=== PATIENT | male | born 1980 | race Asian ===

== ENCOUNTER 2019-07-23 10:08 | Emergency (ER) | payer MEDICAID ==
[~2019-07-23] VITALS: Ht 170.2 cm; Wt 70.3 kg
[2019-07-23 10:10] VITALS: BP_SYST 141
[2019-07-23] MEDS ORDERED: NACL 0.9% 1,000 ML IV ONE (10:31)
[2019-07-23] MEDS ORDERED: ASPIRIN 81 MG TAB.CHEW PO ONE (10:45)
[2019-07-23 10:55] LABS: BASOPHILS % (AUTO) 0.6 % (0.0-2.0); EOSINOPHILS % (AUTO) 0.1 % (0.0-4.0); HEMATOCRIT 44.6 % (36-54); LYMPHOCYTES # (AUTO) 0.9 K/uL (1.0-5.5); LYMPHOCYTES % (AUTO) 13.6 % (20.5-51.5); MEAN CORPUSCULAR HEMOGLOBIN 30 pg (27-31); MEAN CORPUSCULAR HGB CONC 34 % (32-36); MEAN CORPUSCULAR VOLUME 89 fL (79.0-98.0); MONOCYTES # (AUTO) 0.4 K/uL (0.0-1.0); MONOCYTES % (AUTO) 6.9 % (1.7-9.3); NEUTROPHILS # (AUTO) 4.9 K/uL (1.8-7.7); NEUTROPHILS % (AUTO) 78.8 % (40.0-70.0); PLATELET COUNT (AUTO) 223 K/uL (130-430); RED BLOOD CELL COUNT(AUTO) 4.99 MIL/uL (4.2-6.2); RED CELL DISTRIBUTION WIDTH 13.1 % (9.0-15.0); WHITE BLOOD COUNT (AUTO) 6.3 K/uL (4.8-10.8)
[2019-07-23 11:06] LABS: ANION GAP 8 (5-15); CALCIUM 8.5 mg/dL (8.4-11.0); CHLORIDE 102 mmol/L (98-107); CREATININE 0.91 mg/dL (0.55-1.30); GLUCOSE 134 mg/dL (70-99); POTASSIUM 3.7 mmol/L (3.5-5.1); SODIUM SERUM 138 mmol/L (136-145); UREA NITROGEN, BLOOD 9 mg/dL (8-21)
[2019-07-23 11:07] LABS: GFR AFRICAN AMERICAN 119 mL/min (>90)
[2019-07-23 11:14] LABS: ALANINE AMINOTRANSFERASE 33 U/L (12-78); ALBUMIN 3.7 g/dL (3.4-4.8); ASPARTATE AMINOTRANSFERASE 19 U/L (10-37); TOTAL BILIRUBIN 0.7 mg/dL (0.0-1.0)
[2019-07-23] MEDS ORDERED: traMADol HCL HCL 50 MG TABLET (ULTRAM) PO ONE (12:15)
[2019-07-23 12:42] VITALS: BP_SYST 111
== END 2019-07-23 12:42 | disposition home or self-care (01) ==
LOC: SED 10:08
DX: R07.89 Other chest pain (principal); Z88.6 Allergy status to analgesic agent
CPT/HCPCS: 36415; 71045; 80053; 84484; 85025; 85379; 93005; 99285; J7030

== ENCOUNTER 2020-04-05 10:33 | Emergency (ER) | payer MEDICAID ==
[~2020-04-05] VITALS: Ht 170.2 cm; Wt 65.8 kg
[2020-04-05 10:33] VITALS: BP_SYST 138
--- NOTE | 2020-04-05 10:33 | NUR ---
BROUGHT IMMEDIATELY BACK TO BED #4 AND TRIAGED. REPORT GIVEN TO CHING
--- NOTE | 2020-04-05 10:34 | NUR ---
PT CAME IN FROM HOME WITH C/O LEFT SIDED CHEST PAIN X 2DAYS WITH TINGLING IN LEFT ARM. PT DENIES ANY CARDIAC HX OR OTHER MEDICAL PROBLEMS. PRESENTS AAOX4, V/S STABLE
--- NOTE | 2020-04-05 10:35 | NUR ---
EKG performed at by [facility]. Physician given copy of EKG for review.
--- NOTE | 2020-04-05 10:40 | NUR ---
ER at bedside examining patient.
[2020-04-05] MEDS ORDERED: ASPIRIN 81 MG TAB.CHEW ONE (10:41)
--- NOTE | 2020-04-05 10:42 | NUR ---
PT RECEIVED ASA 162MG PO CHEWABLE, TOLERATED WELL
[2020-04-05] MEDS ORDERED: ASPIRIN 81 MG TAB.CHEW PO ONE ×2 (10:45)
--- NOTE | 2020-04-05 11:00 | NUR ---
# 20 gauge angiocath placed to LFA. Use of asceptic technique. Opsite placed over site. Blood return noted. Blood for lab drawn from site. Flushed with 10 cc of normal saline. No evidence of infiltration noted. Patient tolerated well.
--- NOTE | 2020-04-05 11:20 | NUR ---
PORTABLE X-RAY AT THE BEDSIDE
[2020-04-05 11:21] LABS: BASOPHILS % (AUTO) 0.7 % (0.0-2.0); EOSINOPHILS # (AUTO) 0.1 K/uL (0.0-0.4); EOSINOPHILS % (AUTO) 3.1 % (0.0-4.0); HEMATOCRIT 46.9 % (36-54); HEMOGLOBIN 15.6 g/dL (14.0-18.0); LYMPHOCYTES # (AUTO) 0.9 K/uL (1.0-5.5); LYMPHOCYTES % (AUTO) 24.8 % (20.5-51.5); MEAN CORPUSCULAR HEMOGLOBIN 30 pg (27-31); MEAN CORPUSCULAR HGB CONC 33 % (32-36); MEAN CORPUSCULAR VOLUME 89 fL (79.0-98.0); MONOCYTES # (AUTO) 0.3 K/uL (0.0-1.0); MONOCYTES % (AUTO) 8.9 % (1.7-9.3); NEUTROPHILS # (AUTO) 2.3 K/uL (1.8-7.7); NEUTROPHILS % (AUTO) 62.5 % (40.0-70.0); PLATELET COUNT (AUTO) 219 K/uL (130-430); RED BLOOD CELL COUNT(AUTO) 5.28 MIL/uL (4.2-6.2); RED CELL DISTRIBUTION WIDTH 13.5 % (9.0-15.0); WHITE BLOOD COUNT (AUTO) 3.6 K/uL (4.8-10.8)
[2020-04-05 11:44] LABS: ALBUMIN 3.6 g/dL (3.4-4.8); CALCIUM 8.4 mg/dL (8.4-11.0); CREATININE 0.82 mg/dL (0.55-1.30); POTASSIUM 3.7 mmol/L (3.5-5.1); TOTAL BILIRUBIN 0.7 mg/dL (0.0-1.0)
[2020-04-05 12:50] VITALS: BP_SYST 138
== END 2020-04-05 12:45 | disposition home or self-care (01) ==
LOC: SED 10:33
DX: R07.89 Other chest pain (principal); Z88.6 Allergy status to analgesic agent
CPT/HCPCS: 36415; 71045; 80053; 84484; 85025; 93005; 99285

== ENCOUNTER 2020-06-02 17:17 | Emergency (ER) | payer MEDICAID ==
[~2020-06-02] VITALS: Ht 170.2 cm; Wt 63.5 kg
[2020-06-02 17:25] VITALS: BP_SYST 139
--- NOTE | 2020-06-02 17:28 | NUR ---
Patient to ER bed 6 to gown for evaluation. Side rails up. Report given to Giulia BARRIOS.
--- NOTE | 2020-06-02 17:30 | NUR ---
Pt walked in to ER with c/o chest pressure and dyspnea x2 weeks. Reports going to his PMD and having labs drawn which were normal. V/S stable, pt is afebrile. No distress noted.
--- NOTE | 2020-06-02 17:35 | NUR ---
ER Dr. Clancy at bedside examining patient.
--- NOTE | 2020-06-02 17:50 | NUR ---
Patient given written and verbal discharge instructions and verbalizes understanding. ER MD discussed with patient the results and treatment provided. Patient in stable condition. ID arm band removed. Rx of Motrin given. Patient educated on pain management and to follow up with PMD. Pain Scale 0. Opportunity for questions provided and answered. Medication side effect fact sheet provided.
[2020-06-02 17:51] VITALS: BP_SYST 139
== END 2020-06-02 17:51 | disposition home or self-care (01) ==
LOC: SED 17:17
DX: R07.89 Other chest pain (principal); Z88.6 Allergy status to analgesic agent
CPT/HCPCS: 93005; 99283

== ENCOUNTER 2020-08-22 22:01 | Emergency (ER) | payer MEDICAID ==
[~2020-08-22] VITALS: Ht 170.2 cm; Wt 61.2 kg
[2020-08-22 22:05] VITALS: BP_SYST 138
[2020-08-22] MEDS ORDERED: INSULIN REGULAR, HUMAN 10 UNITS/0.1 ML INJ IVP ONE (22:15)
[2020-08-22] MEDS ORDERED: NACL 0.9% 1,000 ML IV ONE (22:15)
[2020-08-22 23:09] LABS: BASOPHILS # (AUTO) 0.1 K/uL (0.0-0.2); EOSINOPHILS % (AUTO) 0.8 % (0.0-4.0); HEMATOCRIT 43.7 % (36-54); HEMOGLOBIN 14.4 g/dL (14.0-18.0); LYMPHOCYTES # (AUTO) 1.7 K/uL (1.0-5.5); LYMPHOCYTES % (AUTO) 30.4 % (20.5-51.5); MEAN CORPUSCULAR HEMOGLOBIN 29 pg (27-31); MEAN CORPUSCULAR HGB CONC 33 % (32-36); MEAN CORPUSCULAR VOLUME 89 fL (79.0-98.0); MONOCYTES # (AUTO) 0.5 K/uL (0.0-1.0); MONOCYTES % (AUTO) 9.1 % (1.7-9.3); NEUTROPHILS # (AUTO) 3.4 K/uL (1.8-7.7); NEUTROPHILS % (AUTO) 58.7 % (40.0-70.0); PLATELET COUNT (AUTO) 165 K/uL (130-430); RED BLOOD CELL COUNT(AUTO) 4.91 MIL/uL (4.2-6.2); RED CELL DISTRIBUTION WIDTH 13.4 % (9.0-15.0); WHITE BLOOD COUNT (AUTO) 5.7 K/uL (4.8-10.8)
[2020-08-22 23:22] LABS: CALCIUM 8.3 mg/dL (8.4-11.0); CREATININE 0.86 mg/dL (0.55-1.30); POTASSIUM 3.9 mmol/L (3.5-5.1)
[2020-08-22 23:25] LABS: INR 1.1 (0.80-1.20)
[2020-08-22 23:28] LABS: ALBUMIN 3.7 g/dL (3.4-4.8); TOTAL BILIRUBIN 0.4 mg/dL (0.0-1.0)
[2020-08-23] MEDS ORDERED: D5/0.45 NS 500 ML IV ONE (00:30)
[2020-08-23 02:21] VITALS: BP_SYST 118
[2020-08-23] MEDS ORDERED: LORazepam 1 MG TABLET ONE (07:36)
[2020-08-24 09:06] LABS: PROLACTIN 6.3 ng/mL (4.0-15.2)
== END 2020-08-23 02:23 | disposition home or self-care (01) ==
LOC: SED 22:01
DX: R55 Syncope and collapse (principal); Z88.6 Allergy status to analgesic agent
CPT/HCPCS: 36415; 70450; 71045; 76376; 80053; 82962; 83605; 84146; 84484; 84681; 85025; 85610; 85730; 93005; 96360; 99285; J7030

== ENCOUNTER 2020-08-23 06:49 | Emergency (ER) | payer MEDICAID ==
[~2020-08-23] VITALS: Ht 170.2 cm; Wt 61.2 kg
[2020-08-23 06:49] VITALS: BP_SYST 115
[2020-08-23] MEDS ORDERED: LORazepam 1 MG TABLET PO ONE (07:30)
[2020-08-23 08:33] LABS: BASOPHILS % (AUTO) 0.4 % (0.0-2.0); EOSINOPHILS % (AUTO) 0.6 % (0.0-4.0); HEMATOCRIT 44.2 % (36-54); HEMOGLOBIN 14.7 g/dL (14.0-18.0); LYMPHOCYTES # (AUTO) 1.1 K/uL (1.0-5.5); LYMPHOCYTES % (AUTO) 19.3 % (20.5-51.5); MEAN CORPUSCULAR HEMOGLOBIN 29 pg (27-31); MEAN CORPUSCULAR HGB CONC 33 % (32-36); MEAN CORPUSCULAR VOLUME 89 fL (79.0-98.0); MONOCYTES # (AUTO) 0.4 K/uL (0.0-1.0); MONOCYTES % (AUTO) 7.7 % (1.7-9.3); NEUTROPHILS # (AUTO) 4.2 K/uL (1.8-7.7); PLATELET COUNT (AUTO) 173 K/uL (130-430); RED BLOOD CELL COUNT(AUTO) 4.99 MIL/uL (4.2-6.2); RED CELL DISTRIBUTION WIDTH 13.5 % (9.0-15.0); WHITE BLOOD COUNT (AUTO) 5.8 K/uL (4.8-10.8)
[2020-08-23 08:40] LABS: ANION GAP 9 (5-15); CALCIUM 8.7 mg/dL (8.4-11.0); CHLORIDE 106 mmol/L (98-107); CREATININE 0.97 mg/dL (0.55-1.30); GLUCOSE 97 mg/dL (70-99); POTASSIUM 3.7 mmol/L (3.5-5.1); SODIUM SERUM 142 mmol/L (136-145); UREA NITROGEN, BLOOD 10 mg/dL (8-21)
[2020-08-23 08:46] LABS: ALANINE AMINOTRANSFERASE 35 U/L (12-78); ALBUMIN 3.5 g/dL (3.4-4.8); ASPARTATE AMINOTRANSFERASE 23 U/L (10-37); TOTAL BILIRUBIN 0.6 mg/dL (0.0-1.0)
[2020-08-23 08:49] LABS: BARBITURATE, URINE NEGATIVE (NEG <=200); BENZODIAZEPINE, URINE NEGATIVE (NEG <=150); COCAINE, URINE NEGATIVE (NEG <=150); METHAMPHETAMINES SCREEN,URINE NEGATIVE (NEG <=500); URINE AMPHETAMINE NEGATIVE (NEG <=500); URINE METHADONE NEGATIVE (NEG <=200)
[2020-08-23 08:50] LABS: CANNABINOID, URINE NEGATIVE (NEG <=50); OPIATE, URINE NEGATIVE (NEG <=100); PHENCYCLIDINE SCREEN,URINE NEGATIVE (NEG <=25); UR TRICYCLIC ANTIDEPRESSANTS NEGATIVE (NEG <=300); URINE OXYCODONE SCREEN NEGATIVE (NEG <=100); URINE PROPOXYPHENE SCREEN NEGATIVE (NEG <=300)
[2020-08-23 08:51] LABS: GFR AFRICAN AMERICAN 110 mL/min (>90)
[2020-08-23 08:59] LABS: C-REACTIVE PROTEIN QUANT < 0.2 mg/dL (0-0.5)
[2020-08-23 09:16] LABS: ERYTHROCYTE SEDIMENTATION RATE 2 MM/HR (0-15)
[2020-08-23 13:31] VITALS: BP_SYST 109
== END 2020-08-23 13:33 | disposition short-term general hospital (02) ==
LOC: SED 06:49
DX: R55 Syncope and collapse (principal); R94.31 Abnormal electrocardiogram [ECG] [EKG]; Z88.8 Allergy status to other drugs, medicaments and biological substances; Z20.822 Contact with and (suspected) exposure to COVID-19
CPT/HCPCS: 36415; 80053; 80307; 82962; 84443; 84484; 85025; 85651-TC; 86140; 93005; 99285

== ENCOUNTER 2020-12-10 23:25 | Emergency (ER) | payer MEDICAID ==
[~2020-12-10] VITALS: Ht 167.6 cm; Wt 63.5 kg
[2020-12-10 23:29] VITALS: BP_SYST 128
[2020-12-10] MEDS ORDERED: FAMOTIDINE 20 MG TABLET PO ONE (23:45)
[2020-12-10] MEDS ORDERED: DIPHENHYDRAMINE HCL 25 MG CAPSULE PO ONE (23:45)
[2020-12-10] MEDS ORDERED: EPINEPHrine 1 MG/ML AMP SUBCUT ONE (23:45)
[2020-12-10] MEDS ORDERED: predniSONE 20 MG TABLET PO ONE (23:45)
[2020-12-10] MEDS ORDERED: predniSONE 20 MG TABLET ONE (23:50)
[2020-12-10] MEDS ORDERED: FAMOTIDINE 20 MG TABLET ONE (23:50)
[2020-12-10] MEDS ORDERED: DIPHENHYDRAMINE HCL 25 MG CAPSULE ONE (23:50)
[2020-12-11] MEDS ORDERED: DIPH25CA83 PO (00:33)
[2020-12-11] MEDS ORDERED: HYDC2.5% TP (00:33)
[2020-12-11 00:41] VITALS: BP_SYST 128
== END 2020-12-11 00:41 | disposition home or self-care (01) ==
LOC: SED 23:25
DX: M54.9 Dorsalgia, unspecified (principal); T36.8X5A Adverse effect of other systemic antibiotics, initial encounter; L29.9 Pruritus, unspecified; Y92.89 Other specified places as the place of occurrence of the external cause
CPT/HCPCS: 99282; Q0163; J0171; J7512